=== PATIENT | male | born 1955 | race African-American/Black ===

== ENCOUNTER 2019-05-02 14:01 | Inpatient (IN) | payer OTHER, MEDICAID ==
[~2019-05-02] VITALS: Ht 180.3 cm; Wt 143.8 kg
[2019-05-02 14:21] VITALS: BP 155/106
[2019-05-02] MEDS ORDERED: FUROSEMIDE 40 MG/4 ML VIAL IVP ONE ×2 (14:45→16:25)
[2019-05-02 15:41] LABS: BASOPHILS # (AUTO) 0.2 K/uL (0.00-0.22); BASOPHILS % (AUTO) 1.9 % (0.0-2.0); EOSINOPHILS # (AUTO) 0.4 K/uL (0-0.4); EOSINOPHILS % (AUTO) 4.5 % (0.0-4.0); HEMATOCRIT 41.6 % (36-52); HEMOGLOBIN 13.7 g/dL (12.0-18.0); LYMPHOCYTES # (AUTO) 2.3 K/uL (2.0-11.5); LYMPHOCYTES % (AUTO) 29.4 % (20.5-51.1); MEAN CORPUSCULAR HEMOGLOBIN 28 pg (27-31); MEAN CORPUSCULAR HGB CONC 33 g/dL (33-37); MEAN CORPUSCULAR VOLUME 83.9 fL (80-94); MONOCYTES # (AUTO) 0.5 K/uL (0.8-1.0); NEUTROPHILS # (AUTO) 4.7 K/uL (1.8-7.7); NEUTROPHILS % (AUTO) 58.2 % (42.2-75.2); PLATELET COUNT (AUTO) 249 K/uL (140-450); RED BLOOD CELL COUNT(AUTO) 4.96 MIL/uL (4.20-6.10); RED CELL DISTRIBUTION WIDTH 17.2 % (11.6-13.7)
[2019-05-02 15:58] LABS: ALBUMIN 2.8 g/dL (3.4-5.0); ANION GAP 11.7 (8-16); CARBON DIOXIDE 25.2 mmol/L (21-32); CREATININE 1.3 mg/dL (0.6-1.3); POTASSIUM 3.9 mmol/L (3.5-5.1); TOTAL BILIRUBIN 0.7 mg/dL (0.0-1.0)
[2019-05-02] MEDS ORDERED: ALBUTEROL 0.083% 2.5 MG/3 ML NEBU INH PRN (17:55)
[2019-05-02] MEDS ORDERED: HYDROcodone/APAP 5/325 MG 1 TAB TAB PO PRN (17:55)
[2019-05-02] MEDS ORDERED: LORazepam 2 MG/ML VIAL IVP PRN (17:55)
[2019-05-02] MEDS ORDERED: ONDANSETRON 4 MG/2 ML VIAL IVP PRN (17:55)
[2019-05-02] MEDS ORDERED: MORPHINE SULFATE 4 MG/ML SYR IVP PRN (17:55)
[2019-05-02] MEDS ORDERED: ACETAMINOPHEN 325 MG TAB PO PRN (17:55)
[2019-05-02] MEDS ORDERED: CARV25TA PO (18:09)
[2019-05-02 18:55] LABS: CREATINE KINASE MB 3.6 ng/mL (0-3.6)
[2019-05-02] MEDS: FUROSEMIDE 40 MG/4 ML VIAL IVP SCH (21:01)
[2019-05-02] MEDS: IPRATROPIUM 0.02% 0.5 MG/2.5 ML NEBU INH SCH (21:33)
[2019-05-02 21:54] VITALS: BP 142/58
[2019-05-03] VITALS: BP 159/63
[2019-05-03] MEDS: IPRATROPIUM 0.02% 0.5 MG/2.5 ML NEBU INH SCH ×4 (01:00→19:39)
[2019-05-03 04:00] VITALS: BP 144/68
[2019-05-03 07:40] LABS: BASOPHILS # (AUTO) 0.1 K/uL (0.00-0.22); EOSINOPHILS # (AUTO) 0.3 K/uL (0-0.4); EOSINOPHILS % (AUTO) 4.2 % (0.0-4.0); HEMATOCRIT 42.3 % (36-52); HEMOGLOBIN 14.3 g/dL (12.0-18.0); LYMPHOCYTES # (AUTO) 2.2 K/uL (2.0-11.5); LYMPHOCYTES % (AUTO) 27.1 % (20.5-51.1); MEAN CORPUSCULAR HEMOGLOBIN 28 pg (27-31); MEAN CORPUSCULAR HGB CONC 34 g/dL (33-37); MEAN CORPUSCULAR VOLUME 82.9 fL (80-94); MONOCYTES # (AUTO) 0.6 K/uL (0.8-1.0); NEUTROPHILS % (AUTO) 60.7 % (42.2-75.2); PLATELET COUNT (AUTO) 247 K/uL (140-450); RED BLOOD CELL COUNT(AUTO) 5.11 MIL/uL (4.20-6.10); WHITE BLOOD COUNT (AUTO) 8.2 K/uL (4.8-10.8)
[2019-05-03 07:47] LABS: ANION GAP 11.1 (8-16); CARBON DIOXIDE 29.3 mmol/L (21-32); CREATININE 1.2 mg/dL (0.6-1.3); POTASSIUM 3.4 mmol/L (3.5-5.1)
[2019-05-03 08:00] VITALS: BP 150/73
[2019-05-03] MEDS: ENOXAPARIN 40 MG/0.4 ML SYR SUBQ SCH (08:46)
[2019-05-03] MEDS: ASPIRIN 81 MG TAB.CHEW PO SCH (08:47)
[2019-05-03] MEDS: FUROSEMIDE 40 MG/4 ML VIAL IVP SCH ×2 (08:48→20:51)
[2019-05-03 12:00] VITALS: BP 155/76
[2019-05-03 16:00] VITALS: BP 155/79
[2019-05-03] MEDS ORDERED: POTASSIUM CHLORIDE 10 MEQ TABER PO ONE ×2 (16:25→17:15)
[2019-05-03] MEDS ORDERED: MAGNESIUM OXIDE 400 MG TAB PO ONE (16:25)
[2019-05-03] MEDS ORDERED: MAGNESIUM OXIDE 400 MG TAB ONE (17:15)
[2019-05-03 18:30] LABS: CREATINE KINASE MB 3.6 ng/mL (0-3.6)
[2019-05-03 20:00] VITALS: BP 172/98
[2019-05-03] MEDS: CARVEDILOL 12.5 MG TAB PO SCH (20:52)
[2019-05-03] MEDS: ATORVASTATIN 20 MG TAB PO SCH (21:00)
[2019-05-04] VITALS: BP 146/90
[2019-05-04] MEDS: IPRATROPIUM 0.02% 0.5 MG/2.5 ML NEBU INH SCH ×4 (01:00→19:50)
[2019-05-04 04:00] VITALS: BP 138/72
[2019-05-04 06:30] LABS: ANION GAP 9.2 (8-16); CARBON DIOXIDE 33.5 mmol/L (21-32); CREATININE 1.1 mg/dL (0.6-1.3); POTASSIUM 3.7 mmol/L (3.5-5.1)
[2019-05-04 08:00] VITALS: BP 177/84
[2019-05-04] MEDS: ASPIRIN 81 MG TAB.CHEW PO SCH (09:03)
[2019-05-04] MEDS: LOSARTAN 25 MG TAB PO SCH (09:04)
[2019-05-04] MEDS: CARVEDILOL 12.5 MG TAB PO SCH ×2 (09:04→21:25)
[2019-05-04] MEDS: ENOXAPARIN 40 MG/0.4 ML SYR SUBQ SCH (09:05)
[2019-05-04] MEDS: FUROSEMIDE 40 MG/4 ML VIAL IVP SCH ×2 (09:06→21:25)
[2019-05-04 12:00] VITALS: BP 149/77
[2019-05-04] MEDS: HYDRAGUARD CREAM TP SCH (13:00)
[2019-05-04] MEDS ORDERED: DEXTROSE 50% 50 ML SYR IVP PRN (15:20)
[2019-05-04 16:00] VITALS: BP 127/56
[2019-05-04] MEDS: BLOOD GLUCOSE MONITORING 1 DEV DEV FS SCH ×2 (16:49→21:26)
[2019-05-04] MEDS: INSULIN LISPRO SLIDING SCALE 100 UNITS/ML VIAL SUBQ PRN ×2 (17:53→21:26)
[2019-05-04 20:00] VITALS: BP 142/57
[2019-05-04] MEDS: ATORVASTATIN 20 MG TAB PO SCH (21:00)
[2019-05-05] VITALS: BP 143/89
[2019-05-05] MEDS: HYDRAGUARD CREAM TP SCH ×2 (01:04→13:26)
[2019-05-05] MEDS: IPRATROPIUM 0.02% 0.5 MG/2.5 ML NEBU INH SCH ×4 (01:30→19:56)
[2019-05-05] MEDS: INSULIN LISPRO SLIDING SCALE 100 UNITS/ML VIAL SUBQ PRN ×4 (06:53→21:29)
[2019-05-05] MEDS: BLOOD GLUCOSE MONITORING 1 DEV DEV FS SCH ×4 (06:53→21:27)
[2019-05-05 08:00] VITALS: BP 145/84
[2019-05-05] MEDS: FUROSEMIDE 40 MG/4 ML VIAL IVP SCH ×2 (09:25→21:33)
[2019-05-05] MEDS: CARVEDILOL 12.5 MG TAB PO SCH ×2 (09:25→21:34)
[2019-05-05] MEDS: LOSARTAN 25 MG TAB PO SCH (09:26)
[2019-05-05] MEDS: ASPIRIN 81 MG TAB.CHEW PO SCH (09:27)
[2019-05-05] MEDS: ENOXAPARIN 40 MG/0.4 ML SYR SUBQ SCH (09:28)
[2019-05-05 12:00] VITALS: BP 107/74
[2019-05-05] MEDS ORDERED: CARV25TA2 PO (15:17)
[2019-05-05 16:00] VITALS: BP 142/76
[2019-05-05 16:49] LABS: BASOPHILS # (AUTO) 0.1 K/uL (0.00-0.22); BASOPHILS % (AUTO) 1.1 % (0.0-2.0); EOSINOPHILS # (AUTO) 0.3 K/uL (0-0.4); HEMATOCRIT 43.7 % (36-52); HEMOGLOBIN 14.5 g/dL (12.0-18.0); LYMPHOCYTES # (AUTO) 2.1 K/uL (2.0-11.5); MEAN CORPUSCULAR HEMOGLOBIN 29 pg (27-31); MEAN CORPUSCULAR HGB CONC 33 g/dL (33-37); MEAN CORPUSCULAR VOLUME 86.1 fL (80-94); MONOCYTES # (AUTO) 0.5 K/uL (0.8-1.0); MONOCYTES % (AUTO) 7.8 % (1.7-9.3); NEUTROPHILS # (AUTO) 3.6 K/uL (1.8-7.7); NEUTROPHILS % (AUTO) 54.1 % (42.2-75.2); PLATELET COUNT (AUTO) 278 K/uL (140-450); RED BLOOD CELL COUNT(AUTO) 5.08 MIL/uL (4.20-6.10); RED CELL DISTRIBUTION WIDTH 16.5 % (11.6-13.7); WHITE BLOOD COUNT (AUTO) 6.7 K/uL (4.8-10.8)
[2019-05-05 17:34] LABS: ALBUMIN 2.7 g/dL (3.4-5.0); ANION GAP 11.2 (8-16); CARBON DIOXIDE 30.7 mmol/L (21-32); CREATININE 1.1 mg/dL (0.6-1.3); POTASSIUM 3.9 mmol/L (3.5-5.1); TOTAL BILIRUBIN 0.3 mg/dL (0.0-1.0)
[2019-05-05 20:00] VITALS: BP 130/41
[2019-05-05] MEDS: ATORVASTATIN 20 MG TAB PO SCH (21:35)
[2019-05-06] VITALS: BP 154/74
[2019-05-06] MEDS: HYDRAGUARD CREAM TP SCH ×2 (00:28→13:00)
[2019-05-06] MEDS: IPRATROPIUM 0.02% 0.5 MG/2.5 ML NEBU INH SCH ×3 (01:51→13:01)
[2019-05-06 04:00] VITALS: BP 144/70
[2019-05-06] MEDS: BLOOD GLUCOSE MONITORING 1 DEV DEV FS SCH ×3 (06:17→17:00)
[2019-05-06] MEDS: INSULIN LISPRO SLIDING SCALE 100 UNITS/ML VIAL SUBQ PRN ×3 (06:21→17:17)
[2019-05-06 08:00] VITALS: BP 140/50
[2019-05-06] MEDS: LOSARTAN 25 MG TAB PO SCH ×2 (09:00→09:51)
[2019-05-06] MEDS: FUROSEMIDE 40 MG/4 ML VIAL IVP SCH (09:50)
[2019-05-06] MEDS: CARVEDILOL 12.5 MG TAB PO SCH (09:51)
[2019-05-06] MEDS: ASPIRIN 81 MG TAB.CHEW PO SCH (09:51)
[2019-05-06] MEDS: ENOXAPARIN 40 MG/0.4 ML SYR SUBQ SCH (09:54)
[2019-05-06 12:00] VITALS: BP 132/58
[2019-05-06 14:36] LABS: ALBUMIN 2.7 g/dL (3.4-5.0); ANION GAP 13.4 (8-16); CARBON DIOXIDE 29.7 mmol/L (21-32); CREATININE 1.4 mg/dL (0.6-1.3); POTASSIUM 4.1 mmol/L (3.5-5.1); TOTAL BILIRUBIN 0.3 mg/dL (0.0-1.0)
[2019-05-06 16:00] VITALS: BP 160/83
[2019-05-06 20:29] VITALS: BP 150/87
[2019-05-06] MEDS ORDERED: ATOR20TA PO (20:51)
== END 2019-05-06 21:55 | disposition home or self-care (01) | DRG 292 ==
LOC: MED 14:01 → MMU 19:24 → UNDOADMIN 19:24 → MTU 19:24
PROVIDERS: ADMIT Internal Medicine Pulmonary Disease; ATTEND Internal Medicine Pulmonary Disease
DX: I11.0 Hypertensive heart disease with heart failure (principal); Z68.41 Body mass index [BMI] 40.0-44.9, adult; I50.23 Acute on chronic systolic (congestive) heart failure; I42.0 Dilated cardiomyopathy; I25.10 Atherosclerotic heart disease of native coronary artery without angina pectoris; N40.0 Benign prostatic hyperplasia without lower urinary tract symptoms; E66.9 Obesity, unspecified; G47.33 Obstructive sleep apnea (adult) (pediatric); E78.5 Hyperlipidemia, unspecified; Z59.0 Homelessness; Z88.0 Allergy status to penicillin
CPT/HCPCS: 36415; 71045; 80048; 80053; 82550; 82553; 82948; 83735; 83880; 84484; 85025; 87081; 93005; 94640; 96374; 99285; J1650; J1815; J1940; J7613; J7644; Q0092